=== PATIENT | female | born 1975 | race Caucasian/White ===

== ENCOUNTER 2016-05-18 10:49 | Observation (INO) ==
[2016-05-18] MEDS ORDERED: ASPIRIN 325 MG TABLET PO STA (11:28)
[2016-05-18 11:40] LABS: Basophils # 0.1 10*3/uL (0.0-0.2); Basophils % 0.7 % (0.0-0.8); Eosinophils # 0.6 10*3/uL (0.0-0.87); Eosinophils % 6.5 % (0.00-10.9); Hematocrit 42.2 VOL% (35.7-47.0); Hemoglobin 14.2 GM/DL (12.0-16.0); Immature Granulocytes % 0.2 %; Immature Granulocytes Absolute 0.02 #; Lymphocytes # 3.1 10*3/uL (1.4-4.0); Lymphocytes % 36.6 % (21.3-54.2); Mean Corpuscular HGB Conc 33.6 GM/DL (32-36); Mean Corpuscular Hemoglobin 31 PG (27-34); Mean Corpuscular Volume 92.5 FL (87-102); Mean Platelet Volume 9.9 FL (9.6-12.0); Monocytes # 0.9 10*3/uL (0.11-0.8); Monocytes % 10.2 % (1.7-12.7); Neutrophils # 3.9 10*3/uL (1.4-7.4); Neutrophils % 45.8 % (38.7-73.9); Platelet Count 281 10*3/uL (130-400); Red Blood Count 4.56 10*6/uL (3.8-5.5); Red Cell Distribution Width 12.3 % (9.3-17.3); White Blood Count 8.6 10*3/uL (4.5-13.71)
--- NOTE | 2016-05-18 11:49 | XRay Report ---
Exam: Chest 2 views Date: May 18, 2016 at 11:41 AM Comparison: Chest PA lateral May 08, 2012 Reason: Chest pain Findings: The cardiac silhouette is normal in size. No focal consolidation, pneumothorax or pleural effusion is identified. There is surgical fusion at the lower cervical spine, but no acute osseous process is seen. Impression: No acute cardiopulmonary process is identified. PROCEDURE INTERPRETED AT [facility] DEPARTMENT OF RADIOLOGY Final Report Signed by: Dr. Rodger Carpenter
[2016-05-18 12:09] LABS: Alanine Aminotransferase 15 U/L (13-56); Albumin 3.9 G/DL (3.4-5.0); Alkaline Phosphatase 67 U/L (45-117); Aspartate Amino Transferase 12 U/L (0-37); Bilirubin,Total < 0.39 MG/DL (0.2-1.0); Blood Urea Nitrogen 11 MG/DL (7-18); Calcium 9.1 MG/DL (8.5-10.1); Glucose 84 MG/DL (74-106); Magnesium 1.9 MG/DL (1.8-2.4); Osmolality,Calculated 280.1 MOS/KG (273-304); Potassium 4.2 MMOL/L (3.5-5.1); Sodium 142 MMOL/L (136-145); Total Protein 7.4 G/DL (6.4-8.3)
[2016-05-18] MEDS ORDERED: ASPIRIN 325 MG TABLET ONE (12:21)
[2016-05-18] MEDS ORDERED: NITROGLYCERIN SL 0.4 MG TABLET SL ONE ×2 (12:25→14:49)
[2016-05-18] MEDS: NITROGLYCERIN SL 0.4 MG TABLET SL PRN ×2 (12:26→17:31)
--- NOTE | 2016-05-18 12:43 | Emergency Department Note ---
Scot Murguia Gwan, am scribing for, and in the presence of, Ray Villela MD 11:42. Tika Murguia Phillip K, MD, personally performed the services described in this documentation, ascribed by Kristina Ellison in my presence, and it is both accurate and complete . Arrival - Arrival Chief Complaint: Chest Pain Stated Complaint: chest pain ED Nursing Triage Note: States she awoke with right side neck pain and shortly after, onset of chest pressure radiating to left scapula. +Nausea and diaphresis Mode of Arrival: Ambulatory Limitations: No Limitations Source: Patient, Old Records Reviewed, RN Notes Reviewed - History of Present Illness HPI Narrative: Pt is a 40 y/o female who presents to the ED with a c/o chest and right side next pain with an onset this morning. Patient stated that after her shower, she began to have chest pressure and left side shoulder/back pain and tingling/ numbness in left arm. As the morning progressed, her numbness/tingling began to radiate down her left arm into her left leg promoting her visit to the ED. Her associated sxs have been diaphoresis, SOB, nausea and pain when she breathes. She noted that she does not have pain with exertion. Patient denies problems with her heart, cough, fever or doing a stress test in the past. Patient continued to note that she had surgery on her neck 2 years ago to remove her C4 and C5 due to herniated disk. Patient confirmed smoking cigarettes and having a FMHx of heart disease. No other problems/complaints reported in ED. Onset (ago): hour(s) Consistency: constant Severity: moderate Date of Last Menstrual Period: Hyst Allergies/Adverse Reactions: Allergies Allergy/AdvReac Type Severity Reaction Status Date / Time Medrol Dose Chris Allergy RASH Uncoded 05/18/16 11:00 Review of System - Review of System 12 point system: reviewed and no additional remarkable complaints except as stated - Review of System Constitutional: Present: as per HPI, diaphoresis Cardiovascular: Present: as per HPI, chest pain, other (sob) Musculoskeletal: Present: back pain, other (shoulder pain) Medical,Surgical,& Family Hx - Surgical History Reproductive Surgeries: Surgical HX of;: Hysterectomy - Family History Family History: Reports;: Family Heart Disease (Mom had OK at age 43) - Social History Smoking Status: Unknown if ever smoked Frequency of Alcohol Use: None Type of Drug Use: None Exam Vital Signs: Vital Signs Temperature 98.7 F 05/18/16 10:50 Pulse Rate 93 H 05/18/16 10:50 Respiratory Rate 16 05/18/16 10:50 Blood Pressure 132/99 05/18/16 10:50 O2 Sat by Pulse Oximetry 99 05/18/16 10:50 - General General appearance: alert, in no apparent distress - Head Head exam: Present: atraumatic, normocephalic - Eye Eye exam: Present: normal appearance, PERRL, EOMI - ENT ENT exam: Present: normal oropharynx, mucous membranes moist, TM's normal bilaterally, normal external ear exam - Neck Neck exam: Present: full ROM. Absent: meningismus, thyromegaly - Chest Chest inspection: Present: symmetric chest wall rise. Absent: tenderness - Respiratory Respiratory exam: Present: normal lung sounds bilaterally. Absent: respiratory distress - Cardiovascular Cardiovascular exam: Present: regular rate, normal rhythm, normal heart sounds. Absent: murmur, rubs, gallop - Abdominal Exam Abdominal exam: Present: soft, normal bowel sounds. Absent: distention, tenderness, guarding - Extremities Exam Extremities exam: Present: full ROM. Absent: tenderness, pedal edema, calf tenderness - Back Exam Back exam: Present: full ROM. Absent: tenderness - Neurological Exam Neurological exam: Present: alert, oriented X3 - Psychiatric Psychiatric exam: Present: normal affect, normal mood - Skin Skin exam: Present: warm, dry, intact, normal color Course Course Narrative: Patient given a nitroglycerin sublingual. Pain was relieved with sublingual nitroglycerin. Patient discussed with Dr. Nino who will admit. Results - Labs CBC & BMP: 05/18/16 11:34 05/18/16 11:34 Lab Results: I have reviewed the patients labs Labs: Laboratory Tests 05/18/16 11:34 WBC 8.6 RBC 4.56 Hgb 14.2 Hct 42.2 Plt Count 281 [place] # (Auto) 0.9 H Laboratory Tests 05/18/16 11:34 Sodium 142 Potassium 4.2 Chloride 107 Carbon Dioxide 27 BUN 11 - EKG EKG results: interpreted by ERMKacey, WNL, sinus rhythm - Diagnostic Findings Procedure: Chest x-ray: report reviewed by me (No cardiopulmonary process is identified. ) Disposition Clinical Impression: Chest pain, Unstable angina pectoris Case discussed with: patient Disposition: Still a Patient Condition: Guarded Additional Instructions: Admit to Dr. Nino.
[2016-05-18] MEDS ORDERED: MAGNESIUM SULF RIDER 2 GM in PREMIX 1 EACH IV PRN ×2 (13:22→17:58)
[2016-05-18] MEDS ORDERED: ZALEPLON 5 MG CAPSULE PO PRN (13:22)
[2016-05-18] MEDS ORDERED: NICOTINE 21 MG/24 HR PATCH TRANSDERM PRN (13:22)
[2016-05-18] MEDS ORDERED: ONDANSETRON 4 MG/2 ML VIAL IV PRN (13:22)
[2016-05-18] MEDS ORDERED: BISACODYL 5 MG TABLET PO PRN (13:22)
[2016-05-18] MEDS ORDERED: MAGNESIUM SULF RIDER 4 GM in PREMIX 1 EACH IV PRN (13:22)
[2016-05-18] MEDS ORDERED: ALUM/MAG/SIMETH/LIDO VISC 1:1 30 ML BOTTLE PO ONE (14:49)
[2016-05-18] MEDS ORDERED: ALUM/MAG/SIMETH/LIDO VISC 1:1 30 ML BOTTLE PO STA (14:54)
[2016-05-18] MEDS ORDERED: INFLUENZA VIRUS VACCINE 0.5 ML SYRINGE IM ONE (15:33)
--- NOTE | 2016-05-18 15:39 | EKG Report ---
Stationary ECG Study [facility] Test Date: 05/18/2016 3:38:49 PM Pat Name: KUMAR LEI Department: Room: 294 Gender: F [employer] Lead: : 1975 Requested by: Ray Emerson Order Number: [id number] Reading MD: LIA ARREOLA Intervals [place] Rate: 66 P: 72 LA: 197 QRS: 78 QRSD: 89 T: 64 QT: 422 QTc: 436 Interpretive Statements SINUS RHYTHM POSSIBLE RIGHT VENTRICULAR CONDUCTION DELAY Electronically Signed On 05-20-16 09:42:27 UNSTACKER by LIA ARREOLA [id number]
[2016-05-18] MEDS ORDERED: NITROGLYCERIN 2% OINT 1 INCH/GM PACK TOP ONE ×2 (17:49→21:48)
[2016-05-18] MEDS ORDERED: POTASSIUM CHLORIDE RIDER 10 MEQ in PREMIX 1 EACH IV PRN (17:58)
[2016-05-18] MEDS: SODIUM CHLORIDE 0.45% 1,000 ML IV SCH (18:03)
[2016-05-18] MEDS: NITROGLYCERIN 2% OINT 1 INCH/GM PACK TOP SCH ×2 (18:15→23:05)
[2016-05-18] MEDS: ACETAMINOPHEN 325 MG TABLET PO PRN (20:10)
--- NOTE | 2016-05-18 20:51 | Cardiology History & Physical ---
I, Isabel Azul RN, am scribing for, and in the presence of, Lizette Nino MD 20:51. Assessment and Plan - Time spent with patient Time spent with patient: Greater than 30 minutes (1) Chest pain Status: Acute Assessment and plan: Patient is currently chest pain free. Pain was relieved by nitroglycerin. We will schedule her for stress testing in the morning. We will continue to cycle cardiac biomarkers and EKG's and obtain echocardiogram. Addendum: The patient had recurrent chest pain which radiated into her left arm and fingertips. She was treated with sublingual nitroglycerin and her symptoms resolved. We are going to treat her with Nitropaste, anticoagulation, and set her up for left heart catheterization in the morning. I have discussed the role , risks and benefits of cardiac catheterization with the patient and she is agreeable to proceeding. I have discussed this case with Dr. Michelle. Current Visit: Yes (2) Family history of coronary artery disease Status: Acute Assessment and plan: Her mother has a history of NY with stent placement at age 51. Her father also has a history of NY with 5 previous stents. Current Visit: Yes History of Present Illness Chief complaint: chest pain History of present illness: Ms. 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 She has no significant personal cardiac history but does have a significant family history of coronary artery disease. Her mother had her first NY with stents at age 51. Her father has had an NY with 5 stents. She has a history of stomach ulcers which were treated in 2013 in the setting of BC powder use. She has quit these since then. Her only medications include Nexium daily and a hormone patch. She has risk factors significant for family history and tobacco use. She currently smokes half a pack per day and has makes that she was 14 years old. She presents to the emergency room today with complaints of chest pain that started this morning. She tells me that she woke up this morning with right-sided neck pain. She began getting ready for work and began to have midsternal chest pressure and left hand tingling which worsened as the morning progressed. She had some associated diaphoresis, shortness of breath, and nausea with this pain. Her pain was not relieved until she arrived at the emergency room and received nitroglycerin. Her symptoms were completely relieved upon administration of nitrates. She denies chest pain or chest discomfort on exertion, dyspnea on exertion, palpitations, dizziness, lightheadedness, syncope, fever, chills, nausea, vomiting, diarrhea, constipation, melena, hematochezia, frequent headaches. She does report mild fatigue, snoring, and waking up with headaches on occasion. After this admission, she would probably benefit from outpatient sleep medicine evaluation. Thus far, her cardiac biomarkers are negative. We will continue to cycle serial cardiac biomarkers and EKG's and obtain an echocardiogram. She has had coffee and 3 cigarettes prior to arriving at the emergency room. We will schedule her for stress test in the morning. Allergies Allergy/AdvReac Type Severity Reaction Status Date / Time Medrol Dose Chris Allergy RASH Uncoded 05/18/16 11:00 12 point system: reviewed and no additional remarkable complaints except as stated Medical,Surgical,& Family Hx - Medical History Cardio: No history of: Hypertension, [place] Neurology: No history of: Cerebrovascular Accident Endocrine: No history of: Diabetes Mellitus (IDDM), Diabetes Mellitus (NIDDM), Endocrine Problems Gastrointestinal: History of: GI Problems (diagnosed with stomach ulcers in 2013 ) Musculoskeletal: History of: Herniated Disk (C4/C5) - Surgical History Neurologic Surgeries: Surgical HX of: Neurologic Surgery (surgical repair of herniated discs at C4/C5) Reproductive Surgeries: Surgical HX of;: Hysterectomy - Family History Family History: Reports;: Family Heart Disease (Mom had [place] at age 43) - Social History Smoking Status: Current every day smoker (smokes 1/2 PPD, smoked since age 14y/o ) Have you smoked in the last 12 months: Yes Time spent discussing smoking cessation with patient: 3 to 10 minutes Frequency of Alcohol Use: None Type of Drug Use: None Functional capacity: independent ambulation Cardiology Physical Exam - Constitutional Vitals: Vital Signs Temp Pulse Resp BP Pulse Ox 98.7 F 93 H 18 132/99 99 05/18/16 10:50 05/18/16 10:50 05/18/16 13:38 05/18/16 10:50 05/18/16 10:50 Intake and Output 05/17/16 05/18/16 05/18/16 22:59 06:59 14:59 Other: Weight 165 lb Patient Weight 05/19/16 06:59 Weight 165 lb General appearance: no acute distress, over weight - Head Head exam: Present: normal inspection - Eye Eye exam: Absent: conjunctival injection, nystagmus, periorbital swelling Pupils: Present: BLAISE. Absent: dilated - ENT ENT exam: Present: normal exam, normal external ear exam - Neck Neck exam: Present: normal inspection. Absent: tenderness - Respiratory Respiratory exam: Present: clear to auscultation bilaterally. Absent: rales, rhonchi, stridor, wheezes - Cardiovascular Cardiovascular exam: Present: regular rate and rhythm. Absent: carotid bruit, diastolic murmur, systolic murmur - GI/Abdominal GI/Abdominal exam: Present: normal bowel sounds, soft. Absent: distended, mass , tenderness - Extremities Exam Extremities exam: Present: normal inspection, other (2+ DP pulses bilaterally). Absent: calf tenderness, edema - Back Exam Back exam: Present: normal inspection. Absent: vertebral tenderness - Neurological Exam Neurological exam: Present: alert, oriented X3, other (grossly intact, no resting or essential tremor) - Psychiatric Psychiatric exam: Present: normal affect, normal mood - Skin Skin exam: Present: normal color, warm, dry. Absent: cyanosis Result/EKG - Labs CBC & BMP: 05/18/16 11:34 05/18/16 11:34 Lab Results: I have reviewed the past 24 hour labs Labs: Laboratory Results - last 24 hr 05/18/16 05/18/16 05/18/16 11:34 11:34 11:34 WBC 8.6 RBC 4.56 Hgb 14.2 Hct 42.2 MCV 92.5 MCH 31 MCHC 33.6 RDW 12.3 Plt Count 281 MPV 9.9 Neut % (Auto) 45.8 Lymph % (Auto) 36.6 Randall % (Auto) 10.2 Eos % (Auto) 6.5 Baso % (Auto) 0.7 Neut # (Auto) 3.9 Lymph # (Auto) 3.1 Randall # (Auto) 0.9 H Eos # (Auto) 0.6 Baso # (Auto) 0.1 Immature Gran % 0.2 Nucleated RBC % 0.0 Immature Gran # 0.02 Nucleated RBCs # 0.00 Sodium 142 Potassium 4.2 Chloride 107 Carbon Dioxide 27 Anion Gap 12.2 BUN 11 Creatinine 0.70 GFR Calculation 117 BUN/Creatinine Ratio 15.00 Glucose 84 Calculated Osmolality 280.1 Calcium 9.1 Magnesium 1.9 Total Bilirubin < 0.39 AST 12 ALT 15 Alkaline Phosphatase 67 Troponin I < 0.015 Total Protein 7.4 Albumin 3.9 Globulin 3.5 Albumin/Globulin Ratio 1.1 Trung Murguia Jennifer, MD, personally performed the services described in this documentation, ascribed by Isabel Azul RN in my presence, and it is both accurate and complete .
[2016-05-18] MEDS ORDERED: ENOXAPARIN 40 MG/0.4 ML SYRINGE SUBCUT SCH (21:00)
[2016-05-18] MEDS ORDERED: ENOXAPARIN 80 MG/0.8 ML SYRINGE SUBCUT ONE (21:00)
--- NOTE | 2016-05-18 21:11 | ECHO Report ---
Mary Hawkins Exam Date: 05/18/2016 16:00 Referring Physician: Technologist: Vanessa Palm RDCS Age: 40 Ht (in): Wt (lb): Gender: F Exam Location: [facility] Echo Indications: Chest pain, unspecified, Shortness of breath, Nicotine dependence, unspecified, uncomplicated, Nausea BP: / HR: Rhythm: Sinus Technical Quality: Fair IMPRESSIONS Normal LV systolic and diastolic function, ejection fraction 55%. Trace mitral and tricuspid regurgitation. Mildly dilated aortic root. MEASUREMENTS (Male / Female) Normal Values 2D ECHO LV Diastolic Diameter PLAX 4.9 cm 4.2 - 5.9 / 3.9 - 5.3 cm LV Systolic Diameter PLAX 4.1 cm LV Fractional Shortening PLAX 16.6 % IVS Diastolic Thickness 0.9 cm 0.6 - 1.0 / 0.6 - 0.9 cm LVPW Diastolic Thickness 1.0 cm 0.6 - 1.0 / 0.6 - 0.9 cm RV Internal Dim ED PLAX 2.6 cm Aortic Root Diameter 3.9 cm LA Systolic Diameter LX 2.3 cm 3.0 - 4.0 / 2.7 - 3.8 cm DOPPLER TR Peak Velocity 254.0 cm/s TR Peak Gradient 25.8 mmHg FINDINGS Left Ventricle Normal left ventricular cavity size. Normal left ventricular wall thickness. Left ventricular ejection fraction is estimated at 55 %. Right Ventricle The right ventricle is normal in size and function. Right Atrium Normal size. Left Atrium Normal size. Mitral Valve Morphologically normal mitral valve. Trace mitral valve regurgitation. Aortic Valve Morphologically normal aortic valve without significant sclerosis or stenosis. There is no aortic regurgitation. Tricuspid Valve Morphologically normal tricuspid valve. Trace to mild tricuspid valve regurgitation. Tricuspid regurgitation velocities suggest a PAP of 36 mmHg. Pulmonic Valve Morphologically normal pulmonic valve without significant stenosis. There is no pulmonic regurgitation. Pericardium Normal pericardium without effusion. Aorta Mildly dilated. Lizette Nino MD (Electronically Signed) Final Date: 18 May 2016 21:10
[2016-05-19 00:05] LABS: Apearance,Urine Slightly Hazy (Clear); Bilirubin,Urine Negative (Negative); Blood, Urine Negative (Negative); Glucose,Urine (UA) Negative (Negative); Ketones,Urine Negative (Negative); Mucus,Urine Many /LPF (Occasional); Nitrite,Urine Negative (Negative); Protein,Urine Negative; RBC,Urine 1 /HPF (0-4); Squamous Epithelial Cell,Urine Occasional /HPF (0-10); Urine Color Yellow (Yellow); Urine Specific Gravity 1.024 (1.001-1.035); Urine Urobilinogen < 2.0 EU/DL (0.2-1.0); WBC,Urine 1 /HPF (0-6)
[2016-05-19] MEDS: ACETAMINOPHEN 325 MG TABLET PO PRN (03:18)
[2016-05-19 05:26] LABS: Basophils # 0.1 10*3/uL (0.0-0.2); Basophils % 0.8 % (0.0-0.8); Eosinophils # 0.6 10*3/uL (0.0-0.87); Eosinophils % 8.6 % (0.00-10.9); Hematocrit 37.3 VOL% (35.7-47.0); Hemoglobin 12.1 GM/DL (12.0-16.0); Immature Granulocytes % 0.3 %; Immature Granulocytes Absolute 0.02 #; Lymphocytes # 3.2 10*3/uL (1.4-4.0); Mean Corpuscular HGB Conc 32.4 GM/DL (32-36); Mean Corpuscular Hemoglobin 30 PG (27-34); Mean Corpuscular Volume 93.3 FL (87-102); Mean Platelet Volume 10.3 FL (9.6-12.0); Monocytes # 0.8 10*3/uL (0.11-0.8); Monocytes % 11.3 % (1.7-12.7); Neutrophils # 2.7 10*3/uL (1.4-7.4); Platelet Count 250 10*3/uL (130-400); Red Cell Distribution Width 12.3 % (9.3-17.3); White Blood Count 7.5 10*3/uL (4.5-13.71)
[2016-05-19] MEDS: NITROGLYCERIN 2% OINT 1 INCH/GM PACK TOP SCH ×2 (05:31→12:19)
[2016-05-19 05:38] LABS: PT Patient Result 10.7 SECS; Partial Thromboplastin Time 33.8 SECS (0-40)
[2016-05-19 05:54] LABS: Band Neutrophils 2 % (0-10); Eosinophils 8 % (0-10); Hypochromasia 1+; Lymphocytes 45 % (20-55); Platelet Estimate Adequate; Segmented Neutrophils 30 % (50-85); Total Cells Counted 100
--- NOTE | 2016-05-19 05:58 | EKG Report ---
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
[2016-05-19 06:09] LABS: Calcium 8.2 MG/DL (8.5-10.1)
[2016-05-19 06:10] LABS: Magnesium 1.9 MG/DL (1.8-2.4); Osmolality,Calculated 290.6 MOS/KG (273-304); Potassium 3.9 MMOL/L (3.5-5.1); Risk Ratio 3.04; VLDL CHOLESTEROL 25.4 MG/DL
[2016-05-19] MEDS ORDERED: diphenhydrAMINE CAP 25 MG CAPSULE PO ONE (06:30)
[2016-05-19] MEDS ORDERED: DIAZEPAM 5 MG TABLET PO ONE (06:30)
--- NOTE | 2016-05-19 06:33 | EKG Report ---
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
[2016-05-19] MEDS: SODIUM CHLORIDE 0.45% 1,000 ML IV SCH (07:38)
[2016-05-19] MEDS ORDERED: HEPARIN/NACL 0.9% 2 UNITS/ML 1,000 ML IV ONE (08:33)
[2016-05-19] MEDS ORDERED: LIDOCAINE 1%/EPI INJ 20 ML VIAL ONE (08:33)
--- NOTE | 2016-05-19 08:39 | History and Physical Update ---
Sedation H&P Update - History and Physical H&P was reviewed, the patient examined and there: are no changes in the patients condition since last H&P was completed. - Sedation Plan for Sedation: moderate Patient Consent: Procedure disscussed with patient and patinet has consented., Risks and benefits were discussed with patient,including infection,, bleeding, injury to surrounding structures, seizure, temporary nerve, Patient understands and accepts potential risks/benefits and agrees to, proceed. ASA Class: III Airway Assessment: Class III: Soft palate, base of uvula visible
[2016-05-19] MEDS ORDERED: fentaNYL 100 MCG/2 ML VIAL ONE (08:42)
[2016-05-19] MEDS ORDERED: MIDAZOLAM 2 MG/2 ML VIAL ONE (08:42)
[2016-05-19] MEDS ORDERED: PANTOPRAZOLE 40 MG TABLET PO SCH ×2 (09:00)
--- NOTE | 2016-05-19 09:09 | Cardiac Catheterization ---
Date of Procedure:: 05/19/16 Pre-op Diagnosis: Chest pain with risk factors Post-op diagnosis: same Procedure: Procedures performed: Left heart catheterization Coronary arteriography Left ventriculography [Right] femoral sheath angiography Mynx closure femoral arteriotomy site After obtaining informed consent the patient was brought to the catheterization lab where the [right] groin was prepped and draped in the usual sterile manner. After intravenous sedation and local anesthesia a needle stick was made to the right femoral artery and a [6 Malay sheath] was positioned without difficulty. A left heart catheterization was undertaken using first a Fabian left diagnostic catheter. The catheter was advanced under fluoroscopy over a guidewire and positioned with its tip in the ostium of the left main coronary artery. Multiple angiograms were obtained of the left coronary artery in multiple views. After adequate angiogram to left coronary obtain this catheter was withdrawn and an AMRM right coronary catheter was advanced over a guidewire under fluoroscopic control where angiography of the right coronary artery was undertaken in multiple views. After adequate angiograms of the right coronary artery were obtained this catheter was withdrawn. A pigtail ventriculographic catheter was advanced over a guidewire under fluoroscopic control to the ascending aorta where it was advanced across the aortic valve and intraventricular hemodynamics were measured. A ventriculogram was obtained in the BOOKER projection and afterward a pullback was obtained from the ventricle to the aorta under hemodynamic monitoring and removed. At this point the patient underwent right femoral sheath angiography which demonstrated anatomy appropriate for Mynx closure. This was performed without difficulty and good hemostasis was obtained. The patient then was transferred back to the [facility] having suffered no significant immediate complications. Hemodynamics: Please see the accompanying data sheet Coronary arteriography: Left coronary artery: The left main coronary artery is well-developed and free of significant obstructing lesions. The circumflex coronary is a large nondominant vessel with possesses no significant lesions to its course. The branches of the circumflex likewise are free of significant obstructing lesions. The left anterior descending coronary artery is a large vessel that extends around the apex of the ventricle. The possesses no significant lesions throughout its course. There is a proximal diagonal branch which is a large and free of significant obstructing lesions. The LAD and its remaining branches are free of significant obstructing lesions. Right coronary artery: The right coronary artery is large vessel that is dominant and is free of significant obstructing lesions. The PDA and posterolateral branches likewise are free of significant obstructing lesions. Left ventriculography: After injection of contrast left ventricle is noted normal size with normal contractility. Mitral and aortic structures are noted to be free of significant abnormality by ventriculography. Right femoral sheath angiography: After injection of contrast in the right femoral arterial sheath it is noted be of normal caliber and enters above the bifurcation. The distal iliac, common femoral and bifurcation appear to be free of significant obstructing lesions based on this limited angiographic study. Conclusions: Angiographically no evidence of significant fixed coronary obstruction. Normal left ventricular size and function. Normal end-diastolic pressures at rest Mynx closure right femoral arteriotomy site Discussion recommendations: the patient presents with chest discomfort. She has now undergone evaluation demonstrating no evidence of significant fixed coronary obstruction. She'll continue risk factor modification and our plan will be to evaluate for other etiologies of the patient's discomfort. Findings of been reviewed with the patient's family. Anesthesia: moderate conscious sedation Surgeon / Physician: Brian Michelle - Medications / Follow-up
[2016-05-19] MEDS ORDERED: KETOROLAC 30 MG/1 ML VIAL IM ONE (12:00)
[2016-05-19] MEDS ORDERED: MORPHINE 2 MG/1 ML SYRINGE IV ONE (12:00)
--- NOTE | 2016-05-19 15:34 | Discharge Summary ---
Jorge Alberto Murguia Lauren, RN, am scribing for, and in the presence of, Lizette Nino MD 15:32. Hospital Course - Hospital Course Hospital Course: Ms. Hawkins is a 40 y/o female who presented to the emergency department with complaints of chest pain. She has no significant personal cardiac history but does have a significant family history of coronary artery disease. She has a history of stomach ulcers which were treated in 2013 in the setting of BC powder use. She began getting ready for work and began to have midsternal chest pressure and left hand tingling which worsened as the morning progressed. She had some associated diaphoresis, shortness of breath, and nausea with this pain. Her pain was not relieved until she arrived at the emergency room and received nitroglycerin. Her symptoms were completely relieved upon administration of nitrates. Cardiac biomarkers were negative, EKG' s were benign. She was scheduled for a stress test but continued to have chest pain yesterday evening with relief from nitroglycerin and was subsequently taken for left heart catheterization this morning where she was found to have normal left ventricular size with normal contractility and angiographically no evidence of significant fixed coronary obstruction. The right groin site was closed with Mynx closure and she will be discharged later this afternoon. She does have a history of migraines and complains of a headache the day of discharge. She will be treated for this prior to discharge. Her right groin site dressing is dry and intact, no evidence of bruit, bleeding, or hematoma. She denies pain at the site. Pedal pulses are present and palpable. She was educated on the importance of tobacco cessation and groin care instructions were given. She should follow up with Dr. Michelle in 1 week for groin check and follow up with her primary care provider within 2 weeks to further evaluate symptoms. - Time spent with patient Time with patient DS: Less than 30 minutes Diagnosis - Discharge Diagnosis (1) Chest pain Status: Acute (2) Family history of coronary artery disease Status: Acute Specialty Discharge - Follow Up or Referrals Follow up with: Lizette Nino MD [Physician] - 1 Week (Follow up in 1 week for groin check. ) Discharge Plan - Discharge Data Disposition: Disch To Home/Self Care Condition at Discharge: Stable Discharge Diet: advance to your usual diet Activity: no lifting (over 5 pounds for 10 days) Hygiene: may shower, other (no tub baths for 1 week, keep right groin clean and dry) Weight Bearing at Discharge: full weight bearing Driving: not for (2 days) Contact your physician if you experience:: fever over 101, Difficulty voiding, Redness or swelling, Nausea/Vomiting, Bleeding - Discharge Medications Continue Estradiol [Estradiol 0.1 mg/24 hr (2x week) Patch] 1 patch TRANSDERM Q3D Esomeprazole Magnesium [Nexium] 20 mg PO DAILY - Follow Up or Referral Follow Up: Brian Michelle MD [Physician] - 1 Week - Forms/Instructions Instructions: Coronary Artery Disease (GEN), Heart Healthy Diet (GEN), Cigarette Smoking and Your Health (GEN), How to Stop Smoking, 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 Absent: dilated - ENT ENT exam: Present: normal exam, normal external ear exam - Neck Neck exam: Present: normal inspection. Absent: tenderness - Respiratory Respiratory exam: Present: clear to auscultation bilaterally. Absent: accessory muscle use, chest wall tenderness, rales, rhonchi, stridor, wheezes - Cardiovascular Cardiovascular exam: Present: regular rate and rhythm. Absent: carotid bruit, diastolic murmur, systolic murmur - GI/Abdominal GI/Abdominal exam: Present: normal bowel sounds, soft. Absent: ascites, distended, mass, tenderness - Extremities Exam Extremities exam: Present: normal inspection, other (2+ DP pulses bilaterally). Absent: calf tenderness, edema - Back Exam Back exam: Present: normal inspection. Absent: vertebral tenderness - Neurological Exam Neurological exam: Present: alert, oriented X3, other (Grossly intact ) - Psychiatric Psychiatric exam: Present: normal affect, normal mood - Skin Skin exam: Present: warm, dry. Absent: cyanosis (Right groin dressing dry and intact, no bleeding, hematoma, or bruit at site) Discharge Results Procedures and tests throughout hospitalization: Pending Orders 05/19/16 06:42 CL heart Routine Labs on day of discharge: Labs from last 24 hours 05/19/16 05/19/16 05/19/16 04:56 04:56 04:56 WBC 7.5 RBC 4.00 Hgb 12.1 D Hct 37.3 MCV 93.3 MCH 30 MCHC 32.4 RDW 12.3 Plt Count 250 MPV 10.3 Neut % (Auto) 36.0 L Lymph % (Auto) 43.0 Johnston % (Auto) 11.3 Eos % (Auto) 8.6 Baso % (Auto) 0.8 Neut # (Auto) 2.7 Lymph # (Auto) 3.2 Johnston # (Auto) 0.8 Eos # (Auto) 0.6 Baso # (Auto) 0.1 Total Counted 100 Immature Gran % 0.3 Nucleated RBC % 0.0 Immature Gran # 0.02 Segmented Neutrophils 30 L Band Neutrophils 2 Lymphocytes 45 Monocytes 15 Eosinophils 8 Nucleated RBCs # 0.00 Platelet Estimate Adequate Hypochromasia 1+ Morphology Comment INR 1.0 PT Patient/Control Mix 10.7 Circ Anticoag PTT 33.8 Sodium 146 H Potassium 3.9 Chloride 111 H Carbon Dioxide 25 Anion Gap 13.9 BUN 17 Creatinine 0.60 GFR Calculation 123 BUN/Creatinine Ratio 28.00 H Glucose 88 Calculated Osmolality 290.6 Calcium 8.2 L Magnesium 1.9 Troponin I Triglycerides 127 Cholesterol 140 LDL Cholesterol 73.0 VLDL Cholesterol 25.4 HDL Cholesterol 46 Heart Disease Risk Ratio 3.04 Urine Color Urine Appearance Urine pH Ur Specific [place] Urine Protein Urine Glucose (UA) Urine Ketones Urine Blood Urine Nitrate Urine Bilirubin Urine Urobilinogen Urine Leukocytes Urine RBC Urine WBC Ur Squamous Epith Cells Urine Mucus Ur Culture Indicated? 05/18/16 05/18/16 23:44 17:18 WBC RBC Hgb Hct MCV MCH MCHC RDW Plt Count MPV Neut % (Auto) Lymph % (Auto) Johnston % (Auto) Eos % (Auto) Baso % (Auto) Neut # (Auto) Lymph # (Auto) Johnston # (Auto) Eos # (Auto) Baso # (Auto) Total Counted Immature Gran % Nucleated RBC % Immature Gran # Segmented Neutrophils Band Neutrophils Lymphocytes Monocytes Eosinophils Nucleated RBCs # Platelet Estimate Hypochromasia Morphology Comment INR PT Patient/Control Mix Circ Anticoag PTT Sodium Potassium Chloride Carbon Dioxide Anion Gap BUN Creatinine GFR Calculation BUN/Creatinine Ratio Glucose Calculated Osmolality Calcium Magnesium Troponin I < 0.015 Triglycerides Cholesterol LDL Cholesterol VLDL Cholesterol HDL Cholesterol Heart Disease Risk Ratio Urine Color Yellow Urine Appearance Slightly hazy Urine pH 6.0 Ur Specific [place] 1.024 Urine Protein Negative Urine Glucose (UA) Negative Urine Ketones Negative Urine Blood Negative Urine Nitrate Negative Urine Bilirubin Negative Urine Urobilinogen < 2.0 H Urine Leukocytes Negative Urine RBC 1 Urine WBC 1 Ur Squamous Epith Cells Occasional Urine Mucus Many Ur Culture Indicated? Not indicated - Impressions Left heart catheterization 05/19/16: Coronary arteriography: Left coronary artery: The left main coronary artery is well-developed and free of significant obstructing lesions. The circumflex coronary is a large nondominant vessel with possesses no significant lesions to its course. The branches of the circumflex likewise are free of significant obstructing lesions. The left anterior descending coronary artery is a large vessel that extends around the apex of the ventricle. The possesses no significant lesions throughout its course. There is a proximal diagonal branch which is a large and free of significant obstructing lesions. The LAD and its remaining branches are free of significant obstructing lesions. Right coronary artery: The right coronary artery is large vessel that is dominant and is free of significant obstructing lesions. The PDA and posterolateral branches likewise are free of significant obstructing lesions. Left ventriculography: After injection of contrast left ventricle is noted normal size with normal contractility. Mitral and aortic structures are noted to be free of significant abnormality by ventriculography. Right femoral sheath angiography: After injection of contrast in the right femoral arterial sheath it is noted be of normal caliber and enters above the bifurcation. The distal iliac, common femoral and bifurcation appear to be free of significant obstructing lesions based on this limited angiographic study. Conclusions: Angiographically no evidence of significant fixed coronary obstruction. Normal left ventricular size and function. Normal end-diastolic pressures at rest Mynx closure right femoral arteriotomy site DS: Provider Consults: 05/19/16 09:09 Consult to Cardiac Rehabilitation [CONS] Routine Reason for Cardiac Rehabilitation: Risk Factor Modification Expected date of discharge: 05/19/16 Trung Murguia Jennifer, MD, personally performed the services described in this documentation, ascribed by Isabel Azul RN in my presence, and it is both accurate and complete [id number] .
[2016-05-19 15:48] VITALS: BP 99/61
== END 2016-05-19 17:55 | disposition home or self-care (01) ==
LOC: N.EDINP 10:49 → N.ED 10:49 → N.EDINP 15:14 → N.TELEN 16:15
PROVIDERS: ADMIT Internal Medicine Cardiovascular Disease; ATTEND Internal Medicine Cardiovascular Disease
PROC: CLCCHCL (ICD-10-PCS; 2016-05-19 10:45)